=== PATIENT | female | born 1935 | race Hispanic/Latino ===

== ENCOUNTER 2017-12-25 11:38 | Emergency (ER) | payer MEDICARE ==
[2017-12-25 12:07] LABS: BASOPHILS % (AUTO) 0.3 % (0.0-5.0); EOSINOPHILS % (AUTO) 1.5 % (0.0-8.0); HEMATOCRIT 31.7 % (36-48); LYMPHOCYTES % (AUTO) 30.1 % (21.0-51.0); MEAN CORPUSCULAR HGB CONC 34.4 g/dL (32.0-36.0); MEAN CORPUSCULAR VOLUME 87.1 fL (79-99); NEUTROPHILS % (AUTO) 59.1 % (40.0-77.0); PLATELET COUNT (AUTO) 201 K/uL (130-400); RED BLOOD CELL COUNT(AUTO) 3.64 MIL/uL (4.00-5.50); RED CELL DISTRIBUTION WIDTH 14.8 % (11.0-15.5)
[2017-12-25 12:12] LABS: CREATININE 1.2 mg/dL (0.5-1.5)
[2017-12-25 12:23] LABS: INR 0.93 (0.85-1.15); PARTIAL THROMBOPLASTIN TIME 23.1 SEC (26.3-35.5); PROTHROMBIN TIME 9.8 SEC (9.6-11.6)
[2017-12-25 12:28] LABS: ALBUMIN 4.2 g/dL (3.5-5.0); BILIRUBIN,TOTAL 0.5 mg/dL (0.2-1.0); CREATINE KINASE MB 1.3 ng/mL (0.5-3.6); TOTAL PROTEIN, SERUM 8.1 g/dL (6.0-8.3)
[2017-12-25 12:37] LABS: APPEARANCE,URINE Clear (CLEAR); BILIRUBIN,URINE Negative (NEGATIVE); COLOR,URINE Yellow (YELLOW); GLUCOSE, URINE (UA) Negative (NEGATIVE); KETONES,URINE Negative (NEGATIVE); LEUKOCYTE ESTERASE ,URINE Negative (NEGATIVE); NITRATE,URINE Negative (NEGATIVE); OCCULT BLOOD,URINE Negative (NEGATIVE); PH,URINE 7.5 (5.0-8.0); PROTEIN,URINE Negative (NEGATIVE)
[2017-12-25 12:55] LABS: AMPHET/METH SCREEN,URINE NEGATIVE (NEGATIVE); BARBITURATE SCREEN, URINE NEGATIVE (NEGATIVE); BENZODIAZEPINES SCREEN,URINE NEGATIVE (NEGATIVE); CANNABINOID SCREEN,URINE NEGATIVE (NEGATIVE); COCAINE SCREEN,URINE NEGATIVE (NEGATIVE); OPIATE SCREEN,URINE NEGATIVE (NEGATIVE); PHENCYCLIDINE SCREEN,URINE NEGATIVE (NEGATIVE)
== END 2017-12-25 13:52 | disposition home or self-care (01) ==
LOC: EDH 11:38
DX: R20.2 Paresthesia of skin (principal); Z86.73 Personal history of transient ischemic attack (TIA), and cerebral infarction without residual deficits; I25.10 Atherosclerotic heart disease of native coronary artery without angina pectoris; E78.5 Hyperlipidemia, unspecified; I10 Essential (primary) hypertension
CPT/HCPCS: 36415; 70450; 71045; 80053; 80305; 81003; 82550; 82553; 82948; 83874; 84484; 85025; 85610; 85730; 93005

== ENCOUNTER 2019-02-28 12:46 | Emergency (ER) | payer MEDICARE ==
[2019-02-28 13:32] LABS: BASOPHILS % (AUTO) 0.2 % (0.0-5.0); EOSINOPHILS % (AUTO) 1.1 % (0.0-8.0); HEMATOCRIT 27.5 % (36-48); LYMPHOCYTES % (AUTO) 18.2 % (21.0-51.0); MEAN CORPUSCULAR HEMOGLOBIN 26.6 pg (27.0-33.0); MEAN CORPUSCULAR HGB CONC 32.8 g/dL (32.0-36.0); MEAN CORPUSCULAR VOLUME 81.2 fL (79-99); MONOCYTES % (AUTO) 9.9 % (3.0-13.0); NEUTROPHILS % (AUTO) 70.6 % (40.0-77.0); PLATELET COUNT (AUTO) 204 K/uL (130-400); RED BLOOD CELL COUNT(AUTO) 3.39 MIL/uL (4.00-5.50); RED CELL DISTRIBUTION WIDTH 19.1 % (11.0-15.5); WHITE BLOOD COUNT (AUTO) 6.2 K/uL (4.8-10.8)
[2019-02-28] MEDS ORDERED: DIAZEPAM 5 MG TABLET ONE (13:32)
[2019-02-28 14:22] LABS: CREATININE 2.2 mg/dL (0.5-1.5); POTASSIUM 4.4 mmol/L (3.5-5.1)
[2019-02-28 14:27] LABS: ALBUMIN 3.9 g/dL (3.5-5.0); BILIRUBIN,TOTAL 0.4 mg/dL (0.2-1.0); TOTAL PROTEIN, SERUM 7.4 g/dL (6.0-8.3)
[2019-03-03] MEDS ORDERED: CLOP75TA32 PO (23:29)
[2019-03-03] MEDS ORDERED: SIMV40TA59 PO (23:29)
[2019-03-03] MEDS ORDERED: ENAL10TA PO (23:29)
[2019-03-03] MEDS ORDERED: HYDR12.54 PO (23:29)
[2019-03-03] MEDS ORDERED: ASPI-555 PO (23:29)
== END 2019-02-28 15:51 | disposition home or self-care (01) ==
LOC: EDH 12:46
DX: R53.1 Weakness (principal); I10 Essential (primary) hypertension; I25.10 Atherosclerotic heart disease of native coronary artery without angina pectoris; E78.5 Hyperlipidemia, unspecified; Z86.73 Personal history of transient ischemic attack (TIA), and cerebral infarction without residual deficits; Z90.49 Acquired absence of other specified parts of digestive tract; Z98.890 Other specified postprocedural states
CPT/HCPCS: 36415; 71045; 80053; 82550; 84484; 85025; 93005

== ENCOUNTER 2019-07-01 20:05 | Emergency (ER) | payer MEDICARE ==
[~2019-07-01 20:05] MED LIST: ASPI-555 PO; CEFD300C3 PO; CLOP75TA32 PO; ENAL10TA PO; HYDR12.54 PO; SIMV40TA59 PO
[2019-07-01 20:31] LABS: BASOPHILS % (AUTO) 0.2 % (0.0-5.0); EOSINOPHILS % (AUTO) 1.9 % (0.0-8.0); HEMATOCRIT 26.2 % (36-48); LYMPHOCYTES % (AUTO) 18.3 % (21.0-51.0); MEAN CORPUSCULAR HEMOGLOBIN 26.7 pg (27.0-33.0); MEAN CORPUSCULAR HGB CONC 32.1 g/dL (32.0-36.0); MEAN CORPUSCULAR VOLUME 83.2 fL (79-99); NEUTROPHILS % (AUTO) 70.6 % (40.0-77.0); PLATELET COUNT (AUTO) 210 K/uL (130-400); RED BLOOD CELL COUNT(AUTO) 3.15 MIL/uL (4.00-5.50); RED CELL DISTRIBUTION WIDTH 15.7 % (11.0-15.5)
[2019-07-01 20:54] LABS: APPEARANCE,URINE Clear (CLEAR); BILIRUBIN,URINE Negative (NEGATIVE); COLOR,URINE Yellow (YELLOW); GLUCOSE, URINE (UA) Negative (NEGATIVE); KETONES,URINE Negative (NEGATIVE); LEUKOCYTE ESTERASE ,URINE Small (NEGATIVE); NITRATE,URINE Negative (NEGATIVE); OCCULT BLOOD,URINE Negative (NEGATIVE); PROTEIN,URINE Negative (NEGATIVE)
[2019-07-01 20:59] LABS: CARBON DIOXIDE 24 mmol/L (21-32); CHLORIDE 110 mmol/L (101-111); CREATININE 1.3 mg/dL (0.5-1.5); GLOMERULAR FILTR. RATE CALC 41 mL/min (>60); GLUCOSE,RANDOM 100 mg/dL (70-105); SODIUM SERUM 145 mmol/L (136-145); UREA NITROGEN, BLOOD 22 mg/dL (7-18)
[2019-07-01 21:01] LABS: INR 0.93 (0.85-1.15); PARTIAL THROMBOPLASTIN TIME 21.9 SEC (26.3-35.5); PROTHROMBIN TIME 9.6 SEC (9.6-11.6)
[2019-07-01 21:06] LABS: BACTERIA,URINE Few /HPF (None Seen); MUCUS,URINE None Seen LPF (None Seen); RBC,URINE 0-1 /HPF (0-1)
[2019-07-01 21:23] LABS: ALANINE AMINOTRANSFERASE 15 U/L (12-78); ALBUMIN 3.8 g/dL (3.5-5.0); ASPARTATE AMINOTRANSFERASE 17 U/L (10-37); BILIRUBIN,TOTAL 0.3 mg/dL (0.2-1.0); CREATINE KINASE, TOTAL 84 U/L (21-232); MYOGLOBIN 95 ng/mL (10-92); TOTAL PROTEIN, SERUM 7.4 g/dL (6.0-8.3); TROPONIN I < 0.04 ng/mL (0.00-0.06)
[2019-07-01] MEDS ORDERED: ONDANSETRON HCL 4 MG/2 ML VIAL ONE (21:43)
[2019-07-01] MEDS ORDERED: SODIUM CHLORIDE 0.9% 500ML 500 ML IV ONE (21:43)
== END 2019-07-02 01:32 | disposition home or self-care (01) ==
LOC: EDH 20:05
DX: E86.0 Dehydration (principal); D64.9 Anemia, unspecified; R68.83 Chills (without fever); I25.10 Atherosclerotic heart disease of native coronary artery without angina pectoris; E78.5 Hyperlipidemia, unspecified; I10 Essential (primary) hypertension; Z86.73 Personal history of transient ischemic attack (TIA), and cerebral infarction without residual deficits; Z90.49 Acquired absence of other specified parts of digestive tract; Z87.891 Personal history of nicotine dependence
CPT/HCPCS: 36415; 71045; 74176; 80053; 81001; 82270; 82550; 83605; 83874; 84145; 84484 ×2; 85025; 85610; 85730; 87040 ×2; 87088; 93005 ×2; 96374; 99285; J2405; J7040

== ENCOUNTER 2020-07-31 19:36 | Emergency (ER) | payer MEDICARE ==
[~2020-07-31 19:36] MED LIST changes: -ASPI-555 PO; +ASPI-556 PO; -ENAL10TA PO; +ENAL10TA18 PO
[2020-07-31 20:08] LABS: BASOPHILS % (AUTO) 0.6 % (0.0-5.0); EOSINOPHILS % (AUTO) 2.4 % (0.0-8.0); HEMATOCRIT 27.9 % (36-48); MEAN CORPUSCULAR HEMOGLOBIN 24.4 pg (27.0-33.0); MEAN CORPUSCULAR HGB CONC 30.1 g/dL (32.0-36.0); MEAN CORPUSCULAR VOLUME 81.1 fL (79-99); MONOCYTES % (AUTO) 12.1 % (3.0-13.0); NEUTROPHILS % (AUTO) 59.7 % (40.0-77.0); PLATELET COUNT (AUTO) 251 K/uL (130-400); RED BLOOD CELL COUNT(AUTO) 3.44 MIL/uL (4.00-5.50); RED CELL DISTRIBUTION WIDTH 16.3 % (11.0-15.5); WHITE BLOOD COUNT (AUTO) 5.4 K/uL (4.8-10.8)
[2020-07-31 20:14] LABS: APPEARANCE,URINE Clear (CLEAR); BILIRUBIN,URINE Negative (NEGATIVE); COLOR,URINE Yellow (YELLOW); GLUCOSE, URINE (UA) Negative (NEGATIVE); KETONES,URINE Negative (NEGATIVE); LEUKOCYTE ESTERASE ,URINE Negative (NEGATIVE); NITRATE,URINE Positive (NEGATIVE); OCCULT BLOOD,URINE Small (NEGATIVE); PROTEIN,URINE Trace mg/dL (NEGATIVE)
[2020-07-31 20:17] LABS: CREATININE 1.4 mg/dL (0.5-1.5)
[2020-07-31 20:18] LABS: INR 0.99 (0.85-1.15); PROTHROMBIN TIME 10.6 SEC (9.6-11.6)
[2020-07-31 20:20] LABS: PARTIAL THROMBOPLASTIN TIME 23.1 SEC (26.3-35.5)
[2020-07-31 20:22] LABS: ALBUMIN 3.6 g/dL (3.5-5.0); BILIRUBIN,TOTAL 0.2 mg/dL (0.2-1.0); TOTAL PROTEIN, SERUM 7.2 g/dL (6.0-8.3)
[2020-07-31 20:37] LABS: BACTERIA,URINE Moderate /HPF (None Seen); SQUAMOUS EPITHELIAL CELL,UR Rare /HPF (0-2); TRANSITIONAL EPI CELLS,URINE Rare /HPF (None Seen); WBC,URINE 0-1 /HPF (0-1)
== END 2020-07-31 21:27 | disposition home or self-care (01) ==
LOC: EDH 19:36
DX: R42 Dizziness and giddiness (principal); F41.9 Anxiety disorder, unspecified; D64.9 Anemia, unspecified; N39.0 Urinary tract infection, site not specified; I25.10 Atherosclerotic heart disease of native coronary artery without angina pectoris; E78.5 Hyperlipidemia, unspecified; I10 Essential (primary) hypertension; Z90.49 Acquired absence of other specified parts of digestive tract
CPT/HCPCS: 36415; 70450; 71045; 80053; 81001; 83605; 84484; 85025; 85610; 85730; 87040; 87077; 87088; 87186; 93005

== ENCOUNTER 2020-08-10 13:13 | Inpatient (IN) | payer OTHER, MEDICARE ==
[~2020-08-10] VITALS: Ht 149.9 cm; Wt 44.5 kg
[2020-08-10 13:56] LABS: BASOPHILS % (AUTO) 0.2 % (0.0-5.0); EOSINOPHILS % (AUTO) 0.6 % (0.0-8.0); HEMATOCRIT 26.2 % (36-48); LYMPHOCYTES % (AUTO) 17.5 % (21.0-51.0); MEAN CORPUSCULAR HEMOGLOBIN 25.3 pg (27.0-33.0); MEAN CORPUSCULAR HGB CONC 31.3 g/dL (32.0-36.0); MEAN CORPUSCULAR VOLUME 80.9 fL (79-99); MONOCYTES % (AUTO) 15.5 % (3.0-13.0); PLATELET COUNT (AUTO) 263 K/uL (130-400); RED BLOOD CELL COUNT(AUTO) 3.24 MIL/uL (4.00-5.50); RED CELL DISTRIBUTION WIDTH 17.3 % (11.0-15.5); WHITE BLOOD COUNT (AUTO) 4.9 K/uL (4.8-10.8)
[2020-08-10 14:11] LABS: CREATININE 1.5 mg/dL (0.5-1.5); POTASSIUM 4.2 mmol/L (3.5-5.1)
[2020-08-10 14:15] LABS: ALBUMIN 3.4 g/dL (3.5-5.0); BILIRUBIN,TOTAL 0.4 mg/dL (0.2-1.0); TOTAL PROTEIN, SERUM 7.1 g/dL (6.0-8.3)
[2020-08-10 14:26] LABS: INR 1.02 (0.85-1.15); PROTHROMBIN TIME 10.9 SEC (9.6-11.6)
[2020-08-10 14:27] LABS: PARTIAL THROMBOPLASTIN TIME < 20.0 SEC (26.3-35.5)
[2020-08-10] MEDS ORDERED: IOHEXOL 350 MG/ML 100ML INFUS..BTL IV ONE (15:16)
[2020-08-10 16:09] LABS: APPEARANCE,URINE Clear (CLEAR); BILIRUBIN,URINE Negative (NEGATIVE); COLOR,URINE Yellow (YELLOW); GLUCOSE, URINE (UA) Negative (NEGATIVE); KETONES,URINE Negative (NEGATIVE); LEUKOCYTE ESTERASE ,URINE Trace (NEGATIVE); NITRATE,URINE Negative (NEGATIVE); OCCULT BLOOD,URINE Small (NEGATIVE); PH,URINE 5.5 (5.0-8.0); PROTEIN,URINE Negative (NEGATIVE)
[2020-08-10 16:12] LABS: AMPHET/METH SCREEN,URINE NEGATIVE (NEGATIVE); BARBITURATE SCREEN, URINE NEGATIVE (NEGATIVE); BENZODIAZEPINES SCREEN,URINE NEGATIVE (NEGATIVE); CANNABINOID SCREEN,URINE NEGATIVE (NEGATIVE); COCAINE SCREEN,URINE NEGATIVE (NEGATIVE); OPIATE SCREEN,URINE NEGATIVE (NEGATIVE); PHENCYCLIDINE SCREEN,URINE NEGATIVE (NEGATIVE)
[2020-08-10 16:22] LABS: BACTERIA,URINE Rare /HPF (None Seen); SQUAMOUS EPITHELIAL CELL,UR 0-2 /HPF (0-2); WBC,URINE 0-1 /HPF (0-1)
[2020-08-10] MEDS ORDERED: HYDRALAZINE HCL 20 MG/ML VIAL IV PRN (21:30)
[2020-08-11 07:31] LABS: BASOPHILS % (AUTO) 0.5 % (0.0-5.0); EOSINOPHILS % (AUTO) 1.3 % (0.0-8.0); HEMATOCRIT 27.6 % (36-48); LYMPHOCYTES % (AUTO) 16.9 % (21.0-51.0); MEAN CORPUSCULAR HEMOGLOBIN 24.9 pg (27.0-33.0); MEAN CORPUSCULAR HGB CONC 30.4 g/dL (32.0-36.0); MEAN CORPUSCULAR VOLUME 81.9 fL (79-99); MONOCYTES % (AUTO) 15.9 % (3.0-13.0); NEUTROPHILS % (AUTO) 65.1 % (40.0-77.0); PLATELET COUNT (AUTO) 239 K/uL (130-400); RED BLOOD CELL COUNT(AUTO) 3.37 MIL/uL (4.00-5.50); RED CELL DISTRIBUTION WIDTH 17.3 % (11.0-15.5)
[2020-08-11 07:43] LABS: CREATININE 1.3 mg/dL (0.5-1.5); POTASSIUM 4.8 mmol/L (3.5-5.1)
[2020-08-11] MEDS: ASPIRIN 81MG TAB.CHEW PO SCH (09:00)
[2020-08-11] MEDS: ATORVASTATIN CALCIUM 20 MG TABLET PO SCH (09:00)
[2020-08-11] MEDS: CLOPIDOGREL BISULFATE 75 MG TAB PO SCH (09:00)
[2020-08-11] MEDS ORDERED: ASPIRIN 81MG TAB.CHEW ONE (09:39)
[2020-08-11] MEDS ORDERED: ATORVASTATIN CALCIUM 40 MG TABLET ONE (09:39)
[2020-08-11] MEDS ORDERED: CLOPIDOGREL BISULFATE 75 MG TAB ONE (09:39)
[2020-08-11] MEDS ORDERED: METOPROLOL TARTRATE 25 MG TAB ONE (15:11)
[2020-08-12] MEDS ORDERED: ASPIRIN 81MG TAB.CHEW ONE ×2 (08:42→09:12)
[2020-08-12] MEDS ORDERED: FAMOTIDINE/PF 20 MG/2 ML VIAL IV ONE (08:43)
[2020-08-12] MEDS ORDERED: METOPROLOL TARTRATE 25 MG TAB ONE ×2 (08:43→09:13)
[2020-08-12] MEDS ORDERED: SODIUM CHLORIDE 0.9% 1000ML 1,000 ML IV ONE (08:46)
[2020-08-12 09:00] VITALS: BP 131/77
[2020-08-12] MEDS: CLOPIDOGREL BISULFATE 75 MG TAB PO SCH (09:00)
[2020-08-12] MEDS: ASPIRIN 81MG TAB.CHEW PO SCH (09:00)
[2020-08-12] MEDS: ATORVASTATIN CALCIUM 20 MG TABLET PO SCH (09:00)
[2020-08-12] MEDS: METOPROLOL TARTRATE 25 MG TAB PO SCH ×2 (09:00→21:23)
[2020-08-12] MEDS ORDERED: CLOPIDOGREL BISULFATE 75 MG TAB ONE (09:12)
[2020-08-12] MEDS ORDERED: ATORVASTATIN CALCIUM 40 MG TABLET ONE (09:13)
[2020-08-12] MEDS: DEXTROSE 5 % AND 0.9 % NACL 1,000 ML IV SCH ×2 (10:44→11:52)
[2020-08-12 11:18] LABS: EOSINOPHILS % (AUTO) 0.2 % (0.0-8.0); HEMATOCRIT 27.3 % (36-48); LYMPHOCYTES % (AUTO) 13.4 % (21.0-51.0); MEAN CORPUSCULAR HEMOGLOBIN 25.1 pg (27.0-33.0); MEAN CORPUSCULAR HGB CONC 30.8 g/dL (32.0-36.0); MEAN CORPUSCULAR VOLUME 81.5 fL (79-99); MONOCYTES % (AUTO) 11.2 % (3.0-13.0); NEUTROPHILS % (AUTO) 74.9 % (40.0-77.0); PLATELET COUNT (AUTO) 245 K/uL (130-400); RED BLOOD CELL COUNT(AUTO) 3.35 MIL/uL (4.00-5.50); RED CELL DISTRIBUTION WIDTH 17.1 % (11.0-15.5); WHITE BLOOD COUNT (AUTO) 5.8 K/uL (4.8-10.8)
[2020-08-12 11:37] LABS: ALBUMIN 3.2 g/dL (3.5-5.0); BILIRUBIN,TOTAL 0.2 mg/dL (0.2-1.0); CREATININE 1.1 mg/dL (0.5-1.5); POTASSIUM 4.7 mmol/L (3.5-5.1); TOTAL PROTEIN, SERUM 6.9 g/dL (6.0-8.3)
[2020-08-12] MEDS ORDERED: CEPH250C3 PO (12:01)
[2020-08-12] MEDS ORDERED: MULT-507 PO (12:01)
[2020-08-12 12:27] VITALS: BP 153/63
[2020-08-12 16:00] VITALS: BP 177/76
[2020-08-12 20:33] VITALS: BP 156/71
[2020-08-12 23:32] VITALS: BP 157/70
[2020-08-13 04:08] VITALS: BP 166/77
[2020-08-13 05:32] LABS: BASOPHILS % (AUTO) 0.3 % (0.0-5.0); EOSINOPHILS % (AUTO) 0.1 % (0.0-8.0); HEMATOCRIT 28.1 % (36-48); LYMPHOCYTES % (AUTO) 10.1 % (21.0-51.0); MEAN CORPUSCULAR HEMOGLOBIN 24.9 pg (27.0-33.0); MEAN CORPUSCULAR HGB CONC 30.2 g/dL (32.0-36.0); MEAN CORPUSCULAR VOLUME 82.4 fL (79-99); MONOCYTES % (AUTO) 10.9 % (3.0-13.0); NEUTROPHILS % (AUTO) 78.3 % (40.0-77.0); PLATELET COUNT (AUTO) 219 K/uL (130-400); RED BLOOD CELL COUNT(AUTO) 3.41 MIL/uL (4.00-5.50); RED CELL DISTRIBUTION WIDTH 17.1 % (11.0-15.5); WHITE BLOOD COUNT (AUTO) 7.6 K/uL (4.8-10.8)
[2020-08-13 05:53] LABS: BILIRUBIN,TOTAL 0.3 mg/dL (0.2-1.0); CREATININE 1.1 mg/dL (0.5-1.5); POTASSIUM 4.5 mmol/L (3.5-5.1); TOTAL PROTEIN, SERUM 6.8 g/dL (6.0-8.3)
[2020-08-13 08:00] VITALS: BP 163/76
[2020-08-13] MEDS: CLOPIDOGREL BISULFATE 75 MG TAB PO SCH (08:54)
[2020-08-13] MEDS: METOPROLOL TARTRATE 25 MG TAB PO SCH ×2 (08:54→20:50)
[2020-08-13] MEDS: ATORVASTATIN CALCIUM 20 MG TABLET PO SCH (08:54)
[2020-08-13] MEDS: ASPIRIN 81MG TAB.CHEW PO SCH (08:55)
[2020-08-13] MEDS ORDERED: ACETAMINOPHEN ELIXIR 160 MG/5ML UDCUP PO PRN (11:00)
[2020-08-13] MEDS: DEXTROSE 5%-WATER 1,000 ML IV SCH (11:18)
[2020-08-13 12:00] VITALS: BP 164/67
[2020-08-13 16:10] VITALS: BP 146/75
[2020-08-13 19:47] VITALS: BP 159/63
[2020-08-13 23:28] VITALS: BP 139/59
[2020-08-14 03:48] VITALS: BP 160/75
[2020-08-14] MEDS: DEXTROSE 5%-WATER 1,000 ML IV SCH (04:00)
[2020-08-14 07:19] LABS: BASOPHILS % (AUTO) 0.2 % (0.0-5.0); EOSINOPHILS % (AUTO) 0.3 % (0.0-8.0); HEMATOCRIT 26.6 % (36-48); LYMPHOCYTES % (AUTO) 7.9 % (21.0-51.0); MEAN CORPUSCULAR HEMOGLOBIN 25.1 pg (27.0-33.0); MEAN CORPUSCULAR HGB CONC 30.8 g/dL (32.0-36.0); MEAN CORPUSCULAR VOLUME 81.3 fL (79-99); MONOCYTES % (AUTO) 8.7 % (3.0-13.0); NEUTROPHILS % (AUTO) 82.5 % (40.0-77.0); PLATELET COUNT (AUTO) 188 K/uL (130-400); RED BLOOD CELL COUNT(AUTO) 3.27 MIL/uL (4.00-5.50); RED CELL DISTRIBUTION WIDTH 16.8 % (11.0-15.5); WHITE BLOOD COUNT (AUTO) 11.1 K/uL (4.8-10.8)
[2020-08-14 07:52] LABS: ALBUMIN 2.8 g/dL (3.5-5.0); BILIRUBIN,TOTAL 0.4 mg/dL (0.2-1.0); CREATININE 1.1 mg/dL (0.5-1.5); POTASSIUM 4.1 mmol/L (3.5-5.1); TOTAL PROTEIN, SERUM 6.3 g/dL (6.0-8.3)
[2020-08-14 08:00] VITALS: BP 98/67
[2020-08-14 08:11] LABS: % IRON SATURATION 18.3 % (22-44)
[2020-08-14] MEDS: ASPIRIN 81MG TAB.CHEW PO SCH (11:54)
[2020-08-14] MEDS: CLOPIDOGREL BISULFATE 75 MG TAB PO SCH (11:55)
[2020-08-14] MEDS: METOPROLOL TARTRATE 25 MG TAB PO SCH ×2 (11:55→20:27)
[2020-08-14] MEDS: ATORVASTATIN CALCIUM 20 MG TABLET PO SCH (11:55)
[2020-08-14 12:00] VITALS: BP 139/57
[2020-08-14] MEDS: IRON SUCROSE COMPLEX 100 MG in SODIUM CHLORIDE 0.9% 50 ML IV SCH (12:13)
[2020-08-14] MEDS ORDERED: COMPOUND IV MISC 1 EACH IVSOLN MISC PRN (12:15)
[2020-08-14 16:00] VITALS: BP 118/51
[2020-08-14 20:26] VITALS: BP 132/59
[2020-08-14 23:30] VITALS: BP 126/59
[2020-08-15 04:17] VITALS: BP 132/57
[2020-08-15 05:49] LABS: HEMATOCRIT 25.3 % (36-48); MEAN CORPUSCULAR HEMOGLOBIN 24.8 pg (27.0-33.0); MEAN CORPUSCULAR HGB CONC 31.2 g/dL (32.0-36.0); MEAN CORPUSCULAR VOLUME 79.6 fL (79-99); PLATELET COUNT (AUTO) 177 K/uL (130-400); RED BLOOD CELL COUNT(AUTO) 3.18 MIL/uL (4.00-5.50); RED CELL DISTRIBUTION WIDTH 16.4 % (11.0-15.5); WHITE BLOOD COUNT (AUTO) 9.5 K/uL (4.8-10.8)
[2020-08-15 06:07] LABS: PHOSPHORUS 3.2 mg/dL (2.5-4.9); POTASSIUM 4.2 mmol/L (3.5-5.1)
[2020-08-15 07:04] LABS: LYMPHOCYTES % (MANUAL) 5 % (22-44); MONOCYTES % (MANUAL) 7 % (2-9); REACTIVE LYMPHOCYTES 2 % (0-0); SEGMENTED NEUTROPHILS % 86 % (40-70)
[2020-08-15 07:05] LABS: MAN.DIFF COMMENT-IMPRESSION MANUAL DIFFERENTIAL; PLATELET MORPHOLOGY COMMENT ADEQUATE
[2020-08-15 08:05] VITALS: BP 149/68
[2020-08-15] MEDS: METOPROLOL TARTRATE 25 MG TAB PO SCH (09:13)
[2020-08-15] MEDS: ATORVASTATIN CALCIUM 20 MG TABLET PO SCH (09:13)
[2020-08-15] MEDS: CLOPIDOGREL BISULFATE 75 MG TAB PO SCH (09:13)
[2020-08-15] MEDS: ASPIRIN 81MG TAB.CHEW PO SCH (09:13)
[2020-08-15] MEDS: IRON SUCROSE COMPLEX 100 MG in SODIUM CHLORIDE 0.9% 50 ML IV SCH (09:42)
[2020-08-15] MEDS ORDERED: METO25 PO (09:58)
[2020-08-15] MEDS ORDERED: ATOR20TA65 PO (09:58)
[2020-08-15 10:58] VITALS: BP 113/64
== END 2020-08-15 13:00 | disposition home or self-care (01) | DRG 65 ==
LOC: EDH 13:13 → EDHIP 16:46 → 4DH 08-12 10:03
PROVIDERS: ADMIT Internal Medicine; ATTEND Internal Medicine
DX: I63.9 Cerebral infarction, unspecified (principal); Z68.1 Body mass index [BMI] 19.9 or less, adult; I69.351 Hemiplegia and hemiparesis following cerebral infarction affecting right dominant side; N17.9 Acute kidney failure, unspecified; E87.0 Hyperosmolality and hypernatremia; E87.8 Other disorders of electrolyte and fluid balance, not elsewhere classified; N18.9 Chronic kidney disease, unspecified; R62.7 Adult failure to thrive; D64.9 Anemia, unspecified; E11.22 Type 2 diabetes mellitus with diabetic chronic kidney disease; H49.20 Sixth [abducent] nerve palsy, unspecified eye; E78.5 Hyperlipidemia, unspecified; R27.0 Ataxia, unspecified; R47.1 Dysarthria and anarthria; R53.81 Other malaise; M85.80 Other specified disorders of bone density and structure, unspecified site; R77.8 Other specified abnormalities of plasma proteins; R00.0 Tachycardia, unspecified; I12.9 Hypertensive chronic kidney disease with stage 1 through stage 4 chronic kidney disease, or unspecified chronic kidney disease; E86.0 Dehydration; Z90.49 Acquired absence of other specified parts of digestive tract; Z83.3 Family history of diabetes mellitus; Z82.0 Family history of epilepsy and other diseases of the nervous system
CPT/HCPCS: 36415; 70450; 70496; 70498; 70551; 71045; 80048; 80053; 80305; 81001; 82550; 82948; 83540; 83550; 83721; 84100; 84484; 85025; 85610; 85730; 87088; 92526; 92610; 93005; 93306; 93356; 97039; G0378; J1756; J3490; J7030; J7042; J7070; Q9967

== ENCOUNTER 2020-12-02 10:50 | Emergency (ER) | payer OTHER, MEDICARE ==
[~2020-12-02 10:50] MED LIST changes: +ATOR20TA65 PO; -CEFD300C3 PO; +METO25 PO; +MULT-507 PO; -SIMV40TA59 PO
[2020-12-02] MEDS ORDERED: ACETAMINOPHEN EXTRA STRENGTH 500 MG TABLET ONE (11:56)
[2020-12-02 12:00] LABS: BASOPHILS % (AUTO) 0.2 % (0.0-5.0); EOSINOPHILS % (AUTO) 0.2 % (0.0-8.0); HEMATOCRIT 32.5 % (36-48); LYMPHOCYTES % (AUTO) 9.1 % (21.0-51.0); MEAN CORPUSCULAR HEMOGLOBIN 29.3 pg (27.0-33.0); MEAN CORPUSCULAR VOLUME 91.5 fL (79-99); MONOCYTES % (AUTO) 1.1 % (3.0-13.0); PLATELET COUNT (AUTO) 169 K/uL (130-400); RED BLOOD CELL COUNT(AUTO) 3.55 MIL/uL (4.00-5.50); RED CELL DISTRIBUTION WIDTH 14.8 % (11.0-15.5); WHITE BLOOD COUNT (AUTO) 4.5 K/uL (4.8-10.8)
[2020-12-02 12:07] LABS: CARBON DIOXIDE 24 mmol/L (21-32); CHLORIDE 105 mmol/L (101-111); CREATININE 1.4 mg/dL (0.5-1.5); GLOMERULAR FILTR. RATE CALC 38 mL/min (>60); GLUCOSE,RANDOM 115 mg/dL (70-105); POTASSIUM 4.6 mmol/L (3.5-5.1); SODIUM SERUM 142 mmol/L (136-145); UREA NITROGEN, BLOOD 37 mg/dL (7-18)
[2020-12-02 12:09] LABS: INR 0.97 (0.85-1.15); PROTHROMBIN TIME 10.6 SEC (9.6-11.6)
[2020-12-02 12:11] LABS: PARTIAL THROMBOPLASTIN TIME < 20.0 SEC (26.3-35.5)
[2020-12-02 12:18] LABS: ALANINE AMINOTRANSFERASE 49 U/L (12-78); ALBUMIN 3.6 g/dL (3.5-5.0); ASPARTATE AMINOTRANSFERASE 43 U/L (10-37); BILIRUBIN,TOTAL 0.5 mg/dL (0.2-1.0); CREATINE KINASE, TOTAL 82 U/L (21-232); MYOGLOBIN 102 ng/mL (10-92); TOTAL PROTEIN, SERUM 6.9 g/dL (6.0-8.3); TROPONIN I < 0.04 ng/mL (0.00-0.06)
[2020-12-02 12:54] LABS: APPEARANCE,URINE Clear (CLEAR); BILIRUBIN,URINE Negative (NEGATIVE); COLOR,URINE Yellow (YELLOW); GLUCOSE, URINE (UA) Negative (NEGATIVE); KETONES,URINE Negative (NEGATIVE); LEUKOCYTE ESTERASE ,URINE Trace (NEGATIVE); NITRATE,URINE Positive (NEGATIVE); OCCULT BLOOD,URINE Moderate (NEGATIVE); PROTEIN,URINE POS 2+ mg/dL (NEGATIVE)
[2020-12-02 13:12] LABS: BACTERIA,URINE Moderate /HPF (None Seen)
[2020-12-02] MEDS ORDERED: CEFTRIAXONE SODIUM 1 GM ONE (14:04)
[2020-12-02] MEDS ORDERED: SODIUM CHLORIDE 0.9% 50 ML IV ONE (14:04)
== END 2020-12-02 14:47 | disposition home or self-care (01) ==
LOC: EDH 10:50
DX: N30.00 Acute cystitis without hematuria (principal); R50.9 Fever, unspecified; Z20.822 Contact with and (suspected) exposure to COVID-19; I25.10 Atherosclerotic heart disease of native coronary artery without angina pectoris; E78.5 Hyperlipidemia, unspecified; I10 Essential (primary) hypertension; Z90.49 Acquired absence of other specified parts of digestive tract; Z79.899 Other long term (current) drug therapy
CPT/HCPCS: 36415; 71045; 80053; 81001; 82550; 83605; 83874; 84145; 84484; 85025; 85610; 85730; 86900; 86901; 87040 ×2; 87077 ×2; 87088; 87186 ×2; 87426; 87804 ×2; 93005; 96361; 96365; 99285; J0696; U0003

== ENCOUNTER 2021-04-06 16:31 | Emergency (ER) | payer OTHER, MEDICARE ==
[~2021-04-06] VITALS: Ht 147.3 cm; Wt 47.2 kg
[2021-04-06 16:33] VITALS: BP 156/49
[2021-04-06 16:57] LABS: APPEARANCE,URINE Cloudy (CLEAR); BILIRUBIN,URINE Negative (NEGATIVE); COLOR,URINE Yellow (YELLOW); GLUCOSE, URINE (UA) Negative (NEGATIVE); KETONES,URINE Trace mg/dL (NEGATIVE); LEUKOCYTE ESTERASE ,URINE Moderate (NEGATIVE); NITRATE,URINE Negative (NEGATIVE); OCCULT BLOOD,URINE Small (NEGATIVE); PROTEIN,URINE Trace mg/dL (NEGATIVE)
[2021-04-06 16:58] LABS: MEAN CORPUSCULAR HGB CONC 32.1 g/dL (32.0-36.0); MEAN CORPUSCULAR VOLUME 93.5 fL (79-99); RED BLOOD CELL COUNT(AUTO) 3.53 MIL/uL (4.00-5.50); RED CELL DISTRIBUTION WIDTH 13.3 % (11.0-15.5); WHITE BLOOD COUNT (AUTO) 7.3 K/uL (4.8-10.8)
[2021-04-06 17:15] LABS: CREATININE 1.7 mg/dL (0.5-1.5); POTASSIUM 4.8 mmol/L (3.5-5.1)
[2021-04-06 17:17] LABS: BACTERIA,URINE Moderate /HPF (None Seen)
[2021-04-06 17:18] LABS: MUCUS,URINE Moderate LPF (None Seen); SQUAMOUS EPITHELIAL CELL,UR Moderate /HPF (0-2)
[2021-04-06 17:19] LABS: ALBUMIN 3.4 g/dL (3.5-5.0); BILIRUBIN,TOTAL 0.3 mg/dL (0.2-1.0); TOTAL PROTEIN, SERUM 7.5 g/dL (6.0-8.3)
[2021-04-06] MEDS ORDERED: MACR100 PO (18:59)
== END 2021-04-06 20:02 | disposition home or self-care (01) ==
LOC: EDH 16:31
DX: N39.0 Urinary tract infection, site not specified (principal); G30.9 Alzheimer's disease, unspecified; F02.80 Dementia in other diseases classified elsewhere, unspecified severity, without behavioral disturbance, psychotic disturbance, mood disturbance, and anxiety; E78.00 Pure hypercholesterolemia, unspecified; I10 Essential (primary) hypertension; Z79.82 Long term (current) use of aspirin; Z79.899 Other long term (current) drug therapy; Z86.73 Personal history of transient ischemic attack (TIA), and cerebral infarction without residual deficits
CPT/HCPCS: 36415; 80053; 81001; 85027; 87088; 93005

== ENCOUNTER 2021-04-24 15:06 | Emergency (ER) | payer OTHER, MEDICARE ==
[~2021-04-24] VITALS: Ht 144.8 cm; Wt 45.4 kg
[~2021-04-24 15:06] MED LIST changes: +MACR100 PO
[2021-04-24 15:09] VITALS: BP 146/69
[2021-04-24 15:37] LABS: APPEARANCE,URINE Clear (CLEAR); BILIRUBIN,URINE Negative (NEGATIVE); COLOR,URINE Yellow (YELLOW); GLUCOSE, URINE (UA) Negative (NEGATIVE); KETONES,URINE Negative (NEGATIVE); LEUKOCYTE ESTERASE ,URINE Small (NEGATIVE); NITRATE,URINE Negative (NEGATIVE); OCCULT BLOOD,URINE Negative (NEGATIVE); PROTEIN,URINE Negative (NEGATIVE)
[2021-04-24 15:52] LABS: BACTERIA,URINE Rare /HPF (None Seen); RBC,URINE 0-1 /HPF (0-1); SQUAMOUS EPITHELIAL CELL,UR Few /HPF (0-2)
[2021-04-24 15:54] LABS: BASOPHILS % (AUTO) 0.2 % (0.0-5.0); EOSINOPHILS % (AUTO) 1.7 % (0.0-8.0); HEMATOCRIT 30.9 % (36-48); LYMPHOCYTES % (AUTO) 21.5 % (21.0-51.0); MEAN CORPUSCULAR HGB CONC 32.4 g/dL (32.0-36.0); MEAN CORPUSCULAR VOLUME 92.8 fL (79-99); MONOCYTES % (AUTO) 9.2 % (3.0-13.0); NEUTROPHILS % (AUTO) 66.8 % (40.0-77.0); PLATELET COUNT (AUTO) 211 K/uL (130-400); RED BLOOD CELL COUNT(AUTO) 3.33 MIL/uL (4.00-5.50); WHITE BLOOD COUNT (AUTO) 6.6 K/uL (4.8-10.8)
[2021-04-24 16:04] LABS: CREATININE 1.6 mg/dL (0.5-1.5); POTASSIUM 4.4 mmol/L (3.5-5.1)
[2021-04-24 16:11] LABS: ALBUMIN 3.1 g/dL (3.5-5.0); BILIRUBIN,TOTAL 0.3 mg/dL (0.2-1.0); TOTAL PROTEIN, SERUM 6.9 g/dL (6.0-8.3)
[2021-04-24 17:32] VITALS: BP 116/78
== END 2021-04-24 17:34 | disposition home or self-care (01) ==
LOC: EDH 15:06
DX: G30.9 Alzheimer's disease, unspecified (principal); F02.80 Dementia in other diseases classified elsewhere, unspecified severity, without behavioral disturbance, psychotic disturbance, mood disturbance, and anxiety; F32.9 Major depressive disorder, single episode, unspecified; E78.00 Pure hypercholesterolemia, unspecified; I11.9 Hypertensive heart disease without heart failure; Z79.82 Long term (current) use of aspirin; Z79.899 Other long term (current) drug therapy; Z98.890 Other specified postprocedural states; Z86.73 Personal history of transient ischemic attack (TIA), and cerebral infarction without residual deficits
CPT/HCPCS: 36415; 80053; 81001; 82948; 84484; 85025; 93005

== ENCOUNTER 2021-11-24 15:39 | Inpatient (IN) | payer OTHER, MEDICARE ==
[~2021-11-24] VITALS: Ht 149.9 cm; Wt 58.5 kg
[2021-11-24 15:54] LABS: APPEARANCE,URINE Clear (CLEAR); BILIRUBIN,URINE Negative (NEGATIVE); COLOR,URINE Yellow (YELLOW); GLUCOSE, URINE (UA) Negative (NEGATIVE); KETONES,URINE Negative (NEGATIVE); LEUKOCYTE ESTERASE ,URINE Trace (NEGATIVE); NITRATE,URINE Negative (NEGATIVE); OCCULT BLOOD,URINE Negative (NEGATIVE); PROTEIN,URINE Negative (NEGATIVE)
[2021-11-24 16:00] LABS: BACTERIA,URINE Few /HPF (None Seen); HYALINE CASTS, URINE 0-1 /LPF (0-1 /LPF); SQUAMOUS EPITHELIAL CELL,UR Rare /HPF (0-2)
[2021-11-24] MEDS ORDERED: IOHEXOL 350 MG/ML 100ML INFUS..BTL IV ONE (16:01)
[2021-11-24 16:55] LABS: BASOPHILS % (AUTO) 0.2 % (0.0-5.0); EOSINOPHILS % (AUTO) 3.3 % (0.0-8.0); HEMATOCRIT 30.3 % (36-48); LYMPHOCYTES % (AUTO) 19.3 % (21.0-51.0); MEAN CORPUSCULAR HEMOGLOBIN 29.3 pg (27.0-33.0); MEAN CORPUSCULAR HGB CONC 32.7 g/dL (32.0-36.0); MEAN CORPUSCULAR VOLUME 89.6 fL (79-99); PLATELET COUNT (AUTO) 180 K/uL (130-400); RED BLOOD CELL COUNT(AUTO) 3.38 MIL/uL (4.00-5.50); RED CELL DISTRIBUTION WIDTH 13.8 % (11.0-15.5); WHITE BLOOD COUNT (AUTO) 4.6 K/uL (4.8-10.8)
[2021-11-24 17:05] LABS: CREATININE 1.4 mg/dL (0.5-1.5); POTASSIUM 4.6 mmol/L (3.5-5.1)
[2021-11-24 17:10] LABS: ALBUMIN 3.4 g/dL (3.5-5.0); BILIRUBIN,TOTAL 0.5 mg/dL (0.2-1.0); TOTAL PROTEIN, SERUM 6.7 g/dL (6.0-8.3)
[2021-11-24 17:15] LABS: B-TYPE NATRIURETIC PEPTIDE 177 pg/mL (0-100)
[2021-11-24] MEDS ORDERED: ASPIRIN 81MG CHEW TAB PO ONE (17:30)
[2021-11-24 18:26] LABS: HEMOGLOBIN A1C 6.2 % (4.0-6.0)
[2021-11-24] MEDS ORDERED: LABETALOL 20MG VIAL IV PRN (18:30)
[2021-11-24] MEDS ORDERED: DEXTROSE 5 % AND 0.9 % NACL 1,000 ML IV ONE (18:30)
[2021-11-24 19:48] LABS: CHOLESTEROL 131 mg/dL (<200); HDL CHOLESTEROL 57 mg/dL (35-85); LDL DIRECT 59 mg/dL (0-99); TRIGLYCERIDES 136 mg/dL (30-200)
[2021-11-24 19:59] LABS: % IRON SATURATION 14.2 % (22-44)
[2021-11-24 22:15] VITALS: BP 141/59
[2021-11-24] MEDS ORDERED: FERR-82 PO (22:18)
[2021-11-24] MEDS ORDERED: ATOR40TA71 PO (22:18)
[2021-11-24] MEDS ORDERED: SERT-438 PO (22:22)
[2021-11-24] MEDS ORDERED: MELA10TA2 PO (22:22)
[2021-11-25 03:34] VITALS: BP 110/48
[2021-11-25 07:02] LABS: BASOPHILS % (AUTO) 0.4 % (0.0-5.0); EOSINOPHILS % (AUTO) 4.2 % (0.0-8.0); HEMATOCRIT 29.7 % (36-48); LYMPHOCYTES % (AUTO) 30.8 % (21.0-51.0); MEAN CORPUSCULAR HEMOGLOBIN 27.8 pg (27.0-33.0); MEAN CORPUSCULAR VOLUME 89.7 fL (79-99); MONOCYTES % (AUTO) 11.3 % (3.0-13.0); NEUTROPHILS % (AUTO) 53.1 % (40.0-77.0); PLATELET COUNT (AUTO) 176 K/uL (130-400); RED BLOOD CELL COUNT(AUTO) 3.31 MIL/uL (4.00-5.50); RED CELL DISTRIBUTION WIDTH 13.5 % (11.0-15.5); WHITE BLOOD COUNT (AUTO) 4.5 K/uL (4.8-10.8)
[2021-11-25 07:10] VITALS: BP 137/58
[2021-11-25 07:29] LABS: CREATININE 1.3 mg/dL (0.5-1.5); POTASSIUM 4.4 mmol/L (3.5-5.1)
[2021-11-25 11:15] VITALS: BP 150/93
[2021-11-25 15:10] VITALS: BP 141/59
[2021-11-25 19:36] VITALS: BP 148/46
[2021-11-25 23:21] VITALS: BP 98/50
[2021-11-26 03:27] VITALS: BP 120/45
[2021-11-26 07:35] VITALS: BP 132/36
[2021-11-26 11:05] VITALS: BP 130/55
[2021-11-26 15:55] VITALS: BP 137/74
[2021-11-26] MEDS ORDERED: MELATONIN 10 MG PO PRN (18:00)
[2021-11-26] MEDS ORDERED: SERTRALINE HCL 50 MG TABLET PO PRN (18:00)
[2021-11-26 19:29] VITALS: BP 152/63
[2021-11-26] MEDS ORDERED: ATORVASTATIN 40 MG TABLET PO SCH (21:00)
[2021-11-26] MEDS ORDERED: ASPIRIN 81 MG EC TAB PO SCH (21:00)
[2021-11-26] MEDS: METOPROLOL TARTRATE 25 MG TAB PO SCH (21:32)
[2021-11-26] MEDS: ENALAPRIL MALEATE 10 MG TABLET PO SCH (21:33)
[2021-11-26 23:34] VITALS: BP 145/51
[2021-11-27] VITALS (7 sets, daily range): BP systolic 98–158; BP diastolic 48–70
[2021-11-27 04:46] LABS: HEMATOCRIT 29.2 % (36-48); MEAN CORPUSCULAR HEMOGLOBIN 29.3 pg (27.0-33.0); MEAN CORPUSCULAR HGB CONC 32.9 g/dL (32.0-36.0); RED BLOOD CELL COUNT(AUTO) 3.28 MIL/uL (4.00-5.50); RED CELL DISTRIBUTION WIDTH 13.5 % (11.0-15.5); WHITE BLOOD COUNT (AUTO) 5.3 K/uL (4.8-10.8)
[2021-11-27 05:06] LABS: CREATININE 1.2 mg/dL (0.5-1.5); POTASSIUM 4.5 mmol/L (3.5-5.1)
[2021-11-27] MEDS: ENALAPRIL MALEATE 10 MG TABLET PO SCH (08:10)
[2021-11-27] MEDS: METOPROLOL TARTRATE 25 MG TAB PO SCH (08:11)
[2021-11-27] MEDS ORDERED: LISINOPRIL 10 MG TABLET PO SCH ×2 (09:00→09:30)
[2021-11-27] MEDS ORDERED: CLOPIDOGREL 75MG TAB PO SCH (09:00)
[2021-11-27] MEDS ORDERED: HYDROCHLOROTHIAZIDE 25 MG TABLET PO SCH ×3 (09:00→09:30)
[2021-11-27] MEDS ORDERED: FERROUS SULFATE 325 MG TABLET.DR PO SCH (09:00)
[2021-11-27] MEDS ORDERED: COMPOUND IV MISC 1 EACH IVSOLN MISC PRN (09:00)
[2021-11-27] MEDS ORDERED: IRON SUCROSE COMPLEX 400 MG in 0.9%NACL 50ML 50 ML IV SCH (09:00)
[2021-11-27] MEDS ORDERED: LISINOPRIL 20 MG TABLET PO SCH (09:30)
[2021-11-27] MEDS ORDERED: EPOETIN ALFA-EPBX (NON-ESRD) 10,000 UNIT/ML VIAL SQ SCH (09:30)
[2021-11-27] MEDS ORDERED: ATOR40TA71 PO (09:32)
[2021-11-27] MEDS ORDERED: CLOP75TA32 PO (09:32)
[2021-11-27] MEDS ORDERED: LISI1TAB53 PO (09:32)
[2021-11-27] MEDS ORDERED: SERT-438 PO (09:32)
[2021-11-27] MEDS ORDERED: ASPI-1005 PO (09:32)
[2021-11-27] MEDS ORDERED: EZET10TA48 PO (09:33)
[2021-11-27] MEDS ORDERED: 0.9%NACL 1000ML 1,000 ML IV ONE (14:24)
[2021-11-27] MEDS ORDERED: LISI10TA24 PO (17:54)
[2021-11-27] MEDS ORDERED: HYDR25TA PO (17:54)
[2021-11-27] MEDS ORDERED: 0.9%NACL 1000ML 500 ML IV SCH (18:00)
== END 2021-11-27 18:30 | disposition home or self-care (01) | DRG 812 ==
LOC: EDH 15:39 → EDHIP 18:01 → 4CH 21:26 → 4DH 11-25 17:53
PROVIDERS: ADMIT Internal Medicine; ATTEND Internal Medicine
DX: D64.9 Anemia, unspecified (principal); I69.351 Hemiplegia and hemiparesis following cerebral infarction affecting right dominant side; R53.1 Weakness; E78.5 Hyperlipidemia, unspecified; N18.30 Chronic kidney disease, stage 3 unspecified; D72.819 Decreased white blood cell count, unspecified; Z90.49 Acquired absence of other specified parts of digestive tract; E78.00 Pure hypercholesterolemia, unspecified; I12.9 Hypertensive chronic kidney disease with stage 1 through stage 4 chronic kidney disease, or unspecified chronic kidney disease
CPT/HCPCS: 36415; 70450; 70496; 70498; 70551; 71045; 80048; 80053; 80061; 81001; 82607; 82728; 82948; 83036; 83540; 83550; 83880; 84443; 84484; 85025; 85027; 87088; 92522; 92610; 93005; 93306; 97039; 99291; G0378; J1756; J7030; J7042; Q9967

== ENCOUNTER 2022-01-25 20:15 | Emergency (ER) | payer OTHER, MEDICARE ==
[~2022-01-25] VITALS: Ht 152.4 cm; Wt 43.5 kg
[~2022-01-25 20:15] MED LIST changes: +ASPI-1005 PO; -ASPI-556 PO; -ATOR20TA65 PO; +ATOR40TA71 PO; -ENAL10TA18 PO; +EZET10TA48 PO; +FERR-82 PO; -HYDR12.54 PO; +HYDR25TA PO; +LISI10TA24 PO; -MACR100 PO; +MELA10TA2 PO; -METO25 PO; -MULT-507 PO; +SERT-438 PO
[2022-01-25 20:53] LABS: BASOPHILS % (AUTO) 0.3 % (0.0-5.0); HEMATOCRIT 35.4 % (36-48); LYMPHOCYTES % (AUTO) 15.4 % (21.0-51.0); MEAN CORPUSCULAR HEMOGLOBIN 29.6 pg (27.0-33.0); MEAN CORPUSCULAR HGB CONC 32.5 g/dL (32.0-36.0); MEAN CORPUSCULAR VOLUME 91.2 fL (79-99); MONOCYTES % (AUTO) 18.9 % (3.0-13.0); NEUTROPHILS % (AUTO) 65.1 % (40.0-77.0); PLATELET COUNT (AUTO) 139 K/uL (130-400); RED BLOOD CELL COUNT(AUTO) 3.88 MIL/uL (4.00-5.50); RED CELL DISTRIBUTION WIDTH 14.9 % (11.0-15.5)
[2022-01-25] MEDS ORDERED: ACETAMINOPHEN 325 MG TAB PO ONE (21:00)
[2022-01-25 21:03] LABS: CREATININE 1.6 mg/dL (0.5-1.5); POTASSIUM 4.6 mmol/L (3.5-5.1)
[2022-01-25 21:09] LABS: ALBUMIN 3.8 g/dL (3.5-5.0); BILIRUBIN,TOTAL 0.4 mg/dL (0.2-1.0)
[2022-01-25 22:09] LABS: APPEARANCE,URINE CLEAR (CLEAR); BILIRUBIN,URINE NEGATIVE (NEGATIVE); COLOR,URINE YELLOW (YELLOW); GLUCOSE, URINE (UA) NEGATIVE (NEGATIVE); KETONES,URINE NEGATIVE (NEGATIVE); LEUKOCYTE ESTERASE ,URINE NEGATIVE (NEGATIVE); NITRATE,URINE NEGATIVE (NEGATIVE); OCCULT BLOOD,URINE MODERATE (NEGATIVE); PROTEIN,URINE 30 mg/dL (NEGATIVE); UROBILINOGEN,URINE 0.2 mg/dL (0.2-1.0)
[2022-01-25 22:18] VITALS: BP 112/71
[2022-01-25 22:18] LABS: BACTERIA,URINE Few /HPF (None Seen); SQUAMOUS EPITHELIAL CELL,UR 0-2 /HPF (0-2)
[2022-01-25 22:19] LABS: MUCUS,URINE Few LPF (None Seen)
[2022-01-25] MEDS ORDERED: NIRM1TAB PO (22:30)
== END 2022-01-25 22:51 | disposition home or self-care (01) ==
LOC: EDH 20:15
DX: U07.1 COVID-19 (principal); R53.1 Weakness; E78.00 Pure hypercholesterolemia, unspecified; I10 Essential (primary) hypertension; Z79.899 Other long term (current) drug therapy; Z79.82 Long term (current) use of aspirin; Z86.73 Personal history of transient ischemic attack (TIA), and cerebral infarction without residual deficits; Z98.890 Other specified postprocedural states
CPT/HCPCS: 36415; 71045; 80053; 81001; 83605; 84484; 85025; 87040 ×2; 87635; 87804 ×2; 93005; 99285; C9803